=== PATIENT | female | born 1955 ===

== ENCOUNTER 2022-11-22 10:29 | Outpatient (CLI) | payer OTHER | END 2022-11-22 10:34 | disposition home or self-care (01) | LOC: RX STUDY 10:29 | DX: Q79.1 Other congenital malformations of diaphragm (principal) ==

== ENCOUNTER 2022-11-29 07:51 | Outpatient (CLI) | payer OTHER | END 2022-11-29 07:57 | disposition home or self-care (01) | LOC: TOM 07:51 | DX: Q79.1 Other congenital malformations of diaphragm (principal) | CPT/HCPCS: 74177; Q9965 ==